=== PATIENT | female | born 1980 ===

== ENCOUNTER 2019-01-11 06:41 | Day surgery (SDC) | payer OTHER ==
[~2019-01-11 06:41] MED LIST: RYTHMOL SR225 MG PO
[2019-01-11] MEDS ORDERED: IBUPROFEN400 MG PO (08:30)
== END 2019-01-11 13:35 | disposition home or self-care (01) ==
LOC: CIR.AMB 06:41
DX: N85.01 Benign endometrial hyperplasia (principal)